=== PATIENT | male | born 1995 | race Caucasian/White ===

== ENCOUNTER 2024-01-29 20:11 | Outpatient (CLI) | payer OTHER, SELFPAY | END 2024-01-29 20:12 | disposition home or self-care (01) | LOC: SLEEP 20:15 | PROVIDERS: PCP Chiropractor; Visit Provider Internal Medicine | DX: G47.33 Obstructive sleep apnea (adult) (pediatric) (principal); R09.02 Hypoxemia | CPT/HCPCS: 95810 ==